=== PATIENT | male | born 1990 | race Caucasian/White ===

== ENCOUNTER 2017-09-23 23:52 | Emergency (ER) | payer OTHER ==
[2017-09-23] MEDS ORDERED: Bacitracin Oint 1 GM U/D Packet TOP ONE (23:56)
[2017-09-23] MEDS ORDERED: Lidocaine 1% 20 ML MDV INJECT ONE (23:56)
[2017-09-23] MEDS ORDERED: Diphtheria,Pertussis(Acell),Tetanus Vaccine 0.5 ML Syringe IM ONE (23:57)
--- NOTE | 2017-09-24 00:16 | EDM.PDOC ---
ED HPI GENERAL MEDICAL PROBLEM - General Chief Complaint: Laceration Stated Complaint: CUT ON RIGHT FOOT Time Seen by Provider: 09/24/17 00:11 - History of Present Illness INITIAL COMMENTS - FREE TEXT/NARRATIVE: HISTORY AND PHYSICAL: History of present illness: Patient is a 27 sut[age] male presents concern of laceration of his right foot that occurred while the garage barefoot prior to arrival he denies up-to-date Review of systems: As per history of present illness and below otherwise all systems reviewed and negative. Past medical history: As per history of present illness and as reviewed below otherwise noncontributory. Surgical history: As per history of present illness and as reviewed below otherwise noncontributory. Social history: No reported history of drug or alcohol abuse. Family history: As per history of present illness and as reviewed below otherwise noncontributory. Physical exam: HEENT: Atraumatic, normocephalic, pupils reactive, negative for conjunctival pallor or scleral icterus, mucous membranes moist, throat clear, neck supple, nontender, trachea midline. Lungs: Clear to auscultation, breath sounds equal bilaterally, chest nontender. Heart: S1S2, regular, negative for clicks, rubs, or JVD. Abdomen: Soft, nondistended, nontender. Negative for masses or hepatosplenomegaly. Negative for costovertebral tenderness. Pelvis: Stable nontender. Genitourinary: Deferred. Rectal: Deferred. Extremities: Patient has approximately 3 cm moderate depth laceration over the dorsal aspect of distal right foot CMS neurovascular unremarkable was no tendon involvement Neuro: Awake, alert, oriented. Cranial nerves II through XII unremarkable. Cerebellum unremarkable. Motor and sensory unremarkable throughout. Exam nonfocal. Diagnostics: None Therapeutics: Patient was anesthetized and percent lidocaine without epinephrine. Copious amounts 0.9 normal saline prepped and draped in sterile manner closed with 4-0 nylon interrupted sutures bacitracin was applied Impression: #1 right foot laceration Definitive disposition and diagnosis as appropriate pending reevaluation and review of above. - Related Data Allergies Allergy/AdvReac Type Severity Reaction Status Date / Time No Known Allergies Allergy Verified 11/24/14 02:28 Home Meds: Home Meds Albuterol Sulfate [Albuterol Sulfate HFA] 2 puff INH TID PRN 11/24/14 [History] Past Medical History - Past Health History Medical/Surgical History: Denies Medical/Surgical History ED ROS GENERAL - Review of Systems Review Of Systems: ROS reveals no pertinent complaints other than HPI. ED EXAM, SKIN/RASH Exam: See Below (See dictation) Course - Orders/Labs/Meds Orders: Active Orders 24 hr Category Date Time Status Vaccines to be Administered [RC] PER UNIT ROUTINE Care 09/23/17 23:57 Active Meds: Medications Discontinued Medications Generic Name Dose Route Start Last Admin Trade Name Gabriel PRN Reason Stop Dose Admin Bacitracin 1 dose 09/23/17 23:56 Bacitracin Oint 1 Gm TOP 09/23/17 23:57 ONETIME ONE Diphtheria/Tetanus/Acell Pertussis 0.5 ml 09/23/17 23:57 Adacel IM 09/23/17 23:58 .ONCE ONE Lidocaine HCl Confirm 09/23/17 23:59 Xylocaine-Mpf 1% Administered 09/24/17 00:00 Dose 10 mls @ as directed .ROUTE .STK-MED ONE Lidocaine HCl 20 ml 09/23/17 23:56 Xylocaine 1% INJECT 09/23/17 23:57 ONETIME ONE Departure - Departure Time of Disposition: 00:15 Disposition: Home, Self-Care 01 Condition: Good Clinical Impression: Foot laceration - Discharge Information Referrals: Josh Rios MD [Primary Care Provider] - Additional Instructions: The following information is given to patients seen in the emergency department who are being discharged to home. This information is to outline your options for follow-up care. We provide all patients seen in our emergency department with a follow-up referral. The need for follow-up, as well as the timing and circumstances, are variable depending upon the specifics of your emergency department visit. If you don't have a primary care physician on staff, we will provide you with a referral. We always advise you to contact your personal physician following an emergency department visit to inform them of the circumstance of the visit and for follow-up with them and/or the need for any referrals to a consulting specialist. The emergency department will also refer you to a specialist when appropriate. This referral assures that you have the opportunity for followup care with a specialist. All of these measure are taken in an effort to provide you with optimal care, which includes your followup. Under all circumstances we always encourage you to contact your private physician who remains a resource for coordinating your care. When calling for followup care, please make the office aware that this follow-up is from your recent emergency room visit. If for any reason you are refused follow-up, please contact the [facility] emergency department at and asked to speak to the emergency department charge nurse. Wound care is discussed suture removal 10-14 days return as needed as discussed - My Orders Last 24 Hours: My Active Orders 09/23/17 23:57 Vaccines to be Administered [RC] PER UNIT ROUTINE - Assessment/Plan Last 24 Hours: My Active Orders 09/23/17 23:57 Vaccines to be Administered [RC] PER UNIT ROUTINE
[2017-09-24 01:04] VITALS: BP 128/82
== END 2017-09-24 01:03 | disposition home or self-care (01) ==
LOC: MW.ED 23:52
DX: S91.311A Laceration without foreign body, right foot, initial encounter (principal); Z23 Encounter for immunization; W26.8XXA Contact with other sharp object(s), not elsewhere classified, initial encounter
CPT/HCPCS: 12002; 90471; 90715; 99282; 99283-25